=== PATIENT | male | born 1965 | race Caucasian/White ===

== ENCOUNTER → 2016-04-27 | Outpatient (CLI) | payer OTHER ==
--- NOTE | 2016-04-27 10:56 | RADIOLOGY REPORT PS360 ---
KNEE-4 OR 5 VIEWS-RT Comparison: None History: Right knee pain off-and-on 2 years increased past 2 months. 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 Technique: Weightbearing AP, lateral and [place] views were performed as well as oblique. Findings: The medial and lateral compartment are well-maintained. The femur and tibia appear intact as does the proximal fibula. [place] view shows normal patellofemoral relationships. Patella appears satisfactory. Question some mild soft tissue swelling and inflammation in the fat overlying patellar tendon. Most evident just above the tibial tubercle. Requires correlation. There is a tenderness here? No significant calcifications or no radiopaque foreign bodies. Bones well mineralized. Only Question scant increased joint fluid at suprapatellar bursa but no prominent effusion. IMPRESSION . Osseous structures intact Joint space well maintained Patellofemoral relationships satisfactory Suggestion mild soft tissue swelling anterior to the patellar tendon and tibial tubercle radiographically. Clinical correlation required
== END ==
LOC: RAD 09:36
DX: M25.561 Pain in right knee (principal)